=== PATIENT | male | born 1945 | race Caucasian/White ===

== ENCOUNTER 2021-08-15 17:13 | Inpatient (IN) | payer MEDICARE ==
[~2021-08-15] VITALS: Ht 177.8 cm; Wt 164.8 kg
[2021-08-15] MEDS ORDERED: SODIUM CHLORIDE 0.9% 1,000 ML IV ONE ×3 (17:45→20:00)
[2021-08-15] MEDS ORDERED: ACETAMINOPHEN 1000 MG/ISO-OSM 100 ML IV ONE (17:45)
[2021-08-15 17:53] LABS: BASOPHILS % (AUTO) 0.7 % (0.0-2.0); EOSINOPHILS % (AUTO) 0.2 % (1.0-6.0); HEMATOCRIT 39.3 % (41-53); HEMOGLOBIN 11.9 g/dL (13.5-17.5); LYMPHOCYTES # (AUTO) 0.4 K/uL (1.0-4.8); LYMPHOCYTES % (AUTO) 5.8 % (22.0-44.0); MEAN CORPUSCULAR HEMOGLOBIN 23.6 pg (26.0-34.0); MEAN CORPUSCULAR HGB CONC 30.4 G/dL (31.0-37.0); MEAN CORPUSCULAR VOLUME 78 fL (80-100); MONOCYTES # (AUTO) 0.8 K/uL (0.1-1.0); MONOCYTES % (AUTO) 12.5 % (2.0-9.0); NEUTROPHILS # (AUTO) 5.3 K/uL (1.8-7.7); NEUTROPHILS % (AUTO) 80.8 % (40.0-70.0); PLATELET COUNT (AUTO) 235 K/uL (150-450); RED BLOOD CELL COUNT(AUTO) 5.06 MIL/uL (4.50-5.90); RED CELL DISTRIBUTION WIDTH 20.6 % (11.5-14.5)
[2021-08-15 18:11] LABS: CALCIUM, TOTAL 9.2 mg/dL (8.8-10.5); CREATININE 2.08 mg/dL (0.60-1.30); POTASSIUM 5.6 mmol/L (3.5-5.1)
[2021-08-15 18:14] LABS: INR 1.3 (0.9-1.1); PROTHROMBIN TIME 13.5 SEC (9.4-11.6)
[2021-08-15 18:27] LABS: COVID AG,FIA SOURCE NASOPHARYNGEAL
[2021-08-15] MEDS: DILTIAZEM HCL 5 MG/ML 5 ML VIAL IVP ONE ×2 (18:27→19:09)
[2021-08-15 18:36] LABS: ALBUMIN 2.4 g/dL (3.4-5.0); BILIRUBIN,TOTAL 0.5 mg/dL (0.1-1.0); TOTAL PROTEIN, SERUM 7.1 g/dL (6.4-8.2)
[2021-08-15] MEDS ORDERED: CefTRIAXone 1 GM/DEXTROSE 50 ML IV ONE (18:45)
[2021-08-15] MEDS ORDERED: LEVOFLOXACIN 500 MG/D5% WATER 100 ML IV ONE (18:45)
[2021-08-15 18:54] LABS: APPEARANCE,URINE SL CLOUDY (CLEAR); BILIRUBIN,URINE NEGATIVE (NEGATIVE); GLUCOSE, URINE (UA) NEGATIVE (NEGATIVE); KETONES,URINE NEGATIVE (NEGATIVE); LEUKOCYTE ESTERASE ,URINE SMALL (NEGATIVE); NITRATE,URINE NEGATIVE (NEGATIVE); OCCULT BLOOD,URINE NEGATIVE (NEGATIVE); PROTEIN,URINE POS 1+ (NEGATIVE)
[2021-08-15 19:02] LABS: RBC,URINE None Seen /HPF (0-2); WBC,URINE None Seen /HPF (0-5)
[2021-08-15 19:03] LABS: BACTERIA,URINE Few /HPF (None Seen); SQUAMOUS EPITHELIAL CELL,UR Few /LPF (None Seen); TRIPLE PHOSPHATE CRYSTAL,UR Many /LPF (None Seen)
[2021-08-15 19:03] LABS: LACTIC ACID 1.5 mmol/L (0.4-2.0)
[2021-08-15] MEDS ORDERED: DILTIAZEM HCL 5 MG/ML 5 ML VIAL IVP ONE (19:15)
[2021-08-15] MEDS ORDERED: *CLINICAL-LEVOFLOXACIN IVPB DOSING CLINICAL ONE (20:00)
[2021-08-15] MEDS ORDERED: BISACODYL 10 MG RECTAL RECTAL SUPPOSITORY PR PRN (20:00)
[2021-08-15] MEDS ORDERED: ACETAMINOPHEN 325 MG TABLET PO PRN (20:00)
[2021-08-15] MEDS ORDERED: DIGOXIN 250 MCG/ML 2 ML AMP IVP ONE (20:00)
[2021-08-15 20:50] VITALS: BP 100/58
[2021-08-15] MEDS ORDERED: ACETAMINOPHEN 650 MG RECTAL SUPPOSITORY PR PRN (22:45)
[2021-08-16] VITALS (9 sets, daily range): BP systolic 87–156; BP diastolic 47–109
[2021-08-16] MEDS ORDERED: DIGOXIN 250 MCG/ML 2 ML AMP IVP ONE (00:15)
[2021-08-16] MEDS: HEPARIN SODIUM,PORCINE 5,000 UNITS/ML VIAL SQ SCH ×2 (00:58→08:07)
[2021-08-16 07:20] LABS: CALCIUM, TOTAL 8.9 mg/dL (8.8-10.5); CREATININE 1.94 mg/dL (0.60-1.30); POTASSIUM 5.3 mmol/L (3.5-5.1)
[2021-08-16] MEDS: PANTOPRAZOLE SODIUM 40 MG/VIAL IVP SCH (08:07)
[2021-08-16] MEDS: LEVOFLOXACIN 750 MG/D5% WATER 150 ML IV SCH (12:13)
[2021-08-16] MEDS ORDERED: SODIUM CHLORIDE 0.9% 250 ML IV ONE (13:17)
[2021-08-16] MEDS ORDERED: SODIUM CHLORIDE 0.9% 1,000 ML IV ONE (15:15)
[2021-08-16] MEDS: LORazepam 2 MG/ML VIAL IVP PRN (15:27)
[2021-08-16] MEDS: DIGOXIN 250 MCG/ML 2 ML AMP IVP SCH (15:44)
[2021-08-16] MEDS: AMIODARONE HCL 200 MG TABLET PO SCH (21:53)
[2021-08-16] MEDS: APIXABAN 2.5 MG TABLET PO SCH (21:53)
[2021-08-17] MEDS: LORazepam 2 MG/ML VIAL IVP PRN ×3 (00:53→23:42)
[2021-08-17 05:30] VITALS: BP 143/71
[2021-08-17] MEDS: APIXABAN 2.5 MG TABLET PO SCH ×2 (08:21→20:03)
[2021-08-17] MEDS: DIGOXIN 250 MCG/ML 2 ML AMP IVP SCH (08:21)
[2021-08-17] MEDS: PANTOPRAZOLE SODIUM 40 MG/VIAL IVP SCH (08:21)
[2021-08-17] MEDS: AMIODARONE HCL 200 MG TABLET PO SCH ×2 (08:21→20:03)
[2021-08-17 08:53] LABS: BASOPHILS % (AUTO) 0.3 % (0.0-2.0); EOSINOPHILS % (AUTO) 1.3 % (1.0-6.0); HEMATOCRIT 37.4 % (41-53); HEMOGLOBIN 11.2 g/dL (13.5-17.5); LYMPHOCYTES # (AUTO) 0.5 K/uL (1.0-4.8); LYMPHOCYTES % (AUTO) 7.3 % (22.0-44.0); MEAN CORPUSCULAR HEMOGLOBIN 23.4 pg (26.0-34.0); MEAN CORPUSCULAR VOLUME 78 fL (80-100); MONOCYTES # (AUTO) 0.8 K/uL (0.1-1.0); MONOCYTES % (AUTO) 10.4 % (2.0-9.0); NEUTROPHILS % (AUTO) 80.7 % (40.0-70.0); PLATELET COUNT (AUTO) 203 K/uL (150-450)
[2021-08-17 08:56] VITALS: BP 149/88
[2021-08-17 09:00] LABS: CALCIUM, TOTAL 9.7 mg/dL (8.8-10.5); CREATININE 1.45 mg/dL (0.60-1.30); POTASSIUM 5.1 mmol/L (3.5-5.1)
[2021-08-17 11:58] VITALS: BP 151/106
[2021-08-17] MEDS: LEVOFLOXACIN 750 MG/D5% WATER 150 ML IV SCH (12:21)
[2021-08-17 15:31] VITALS: BP 148/95
[2021-08-17] MEDS: METOPROLOL SUCCINATE 50 MG ER TABLET PO SCH (15:35)
[2021-08-17] MEDS: DOCUSATE SODIUM 100 MG CAPSULE PO SCH (20:03)
[2021-08-17 20:18] VITALS: BP 126/81
[2021-08-18] VITALS (7 sets, daily range): BP systolic 146–162; BP diastolic 77–91
[2021-08-18] MEDS: DIGOXIN 250 MCG/ML 2 ML AMP IVP SCH (08:17)
[2021-08-18] MEDS: METOPROLOL SUCCINATE 50 MG ER TABLET PO SCH (08:17)
[2021-08-18] MEDS: PANTOPRAZOLE SODIUM 40 MG/VIAL IVP SCH (08:17)
[2021-08-18] MEDS: DOCUSATE SODIUM 100 MG CAPSULE PO SCH ×2 (08:17→20:59)
[2021-08-18] MEDS: APIXABAN 2.5 MG TABLET PO SCH ×2 (08:17→20:59)
[2021-08-18] MEDS: AMIODARONE HCL 200 MG TABLET PO SCH ×2 (08:17→20:59)
[2021-08-18] MEDS: LORazepam 2 MG/ML VIAL IVP PRN (08:21)
[2021-08-18] MEDS: FUROSEMIDE 20 MG/2 ML VIAL IVP SCH ×2 (12:30→20:59)
[2021-08-18] MEDS: LEVOFLOXACIN 750 MG/D5% WATER 150 ML IV SCH (12:32)
[2021-08-19 04:51] VITALS: BP 157/86
[2021-08-19 07:21] VITALS: BP 155/95
[2021-08-19] MEDS: DIGOXIN 250 MCG/ML 2 ML AMP IVP SCH (08:43)
[2021-08-19] MEDS: PANTOPRAZOLE SODIUM 40 MG/VIAL IVP SCH (08:43)
[2021-08-19] MEDS: FUROSEMIDE 20 MG/2 ML VIAL IVP SCH ×2 (08:43→21:20)
[2021-08-19] MEDS: DOCUSATE SODIUM 100 MG CAPSULE PO SCH ×2 (08:43→21:20)
[2021-08-19] MEDS: APIXABAN 2.5 MG TABLET PO SCH ×2 (08:44→21:20)
[2021-08-19] MEDS: AMIODARONE HCL 200 MG TABLET PO SCH ×2 (08:44→21:21)
[2021-08-19] MEDS: METOPROLOL SUCCINATE 50 MG ER TABLET PO SCH (08:44)
[2021-08-19 09:44] LABS: BASOPHILS % (AUTO) 0.6 % (0.0-2.0); EOSINOPHILS % (AUTO) 1.9 % (1.0-6.0); HEMATOCRIT 40.4 % (41-53); HEMOGLOBIN 12.5 g/dL (13.5-17.5); LYMPHOCYTES # (AUTO) 0.6 K/uL (1.0-4.8); LYMPHOCYTES % (AUTO) 6.6 % (22.0-44.0); MEAN CORPUSCULAR HEMOGLOBIN 23.5 pg (26.0-34.0); MEAN CORPUSCULAR HGB CONC 31.1 G/dL (31.0-37.0); MEAN CORPUSCULAR VOLUME 76 fL (80-100); MONOCYTES # (AUTO) 0.9 K/uL (0.1-1.0); MONOCYTES % (AUTO) 9.2 % (2.0-9.0); NEUTROPHILS # (AUTO) 7.8 K/uL (1.8-7.7); NEUTROPHILS % (AUTO) 81.7 % (40.0-70.0); PLATELET COUNT (AUTO) 261 K/uL (150-450); RED BLOOD CELL COUNT(AUTO) 5.33 MIL/uL (4.50-5.90); RED CELL DISTRIBUTION WIDTH 20.8 % (11.5-14.5)
[2021-08-19 10:07] LABS: ALBUMIN 2.1 g/dL (3.4-5.0); BILIRUBIN,TOTAL 0.6 mg/dL (0.1-1.0); CALCIUM, TOTAL 10.1 mg/dL (8.8-10.5); CREATININE 1.31 mg/dL (0.60-1.30); POTASSIUM 4.7 mmol/L (3.5-5.1); TOTAL PROTEIN, SERUM 6.9 g/dL (6.4-8.2)
[2021-08-19 11:46] VITALS: BP 151/110
[2021-08-19] MEDS: LEVOFLOXACIN 750 MG/D5% WATER 150 ML IV SCH (12:00)
[2021-08-19 12:34] LABS: DIGOXIN 6.11 ng/mL (0.90-2.00)
[2021-08-19 14:38] LABS: ABG A-A DIFF O2 141.8 mmHg (10-20.0); ABG BASE EXCESS 7.1 mmol/L (-2.0-3.0); ABG CARBOXYHEMOGLOBIN 1.8 % (0.0-1.5); ABG HCO3 29.9 mmol/L (22.0-26.0); ABG METHEMOGLOBIN 0.3 % (0.0-1.5); ABG OXYGEN CONTENT 16.8 mL/dL (15.0-23.0); ABG OXYGEN SATURATION 92.2 % (95.0-98.0); ABG OXYHEMOGLOBIN 90.3 % (94.0-100.0); ABG PCO2 48 mmHg (35-45); ABG PH 7.437 (7.35-7.450); ABG TOTAL HEMOGLOBIN 13.2 G/dL (12.0-18.0); O2 DEVICE,BLOOD GAS CANNULA (ROOM AIR); PO2, ARTERIAL BG 59.8 mmHg (75.0-83.0); SITE, BLOOD GAS LFT RADIAL; SOURCE, BLOOD GAS ARTERIAL; TEMPERATURE, FAHRENHEIT, BG 98.6 FAHREN (96.0-98.6)
[2021-08-19] MEDS ORDERED: LORazepam 2 MG/ML VIAL IVP PRN (15:00)
[2021-08-19 15:41] LABS: THYROID STIMULATING HORMONE 0.64 uIU/mL (0.36-3.74)
[2021-08-19 15:57] VITALS: BP 179/110
[2021-08-19 19:43] VITALS: BP 140/83
[2021-08-19] MEDS: ATORVASTATIN CALCIUM 40 MG TABLET PO SCH (21:20)
[2021-08-20 00:28] VITALS: BP 149/87
[2021-08-20 06:26] VITALS: BP 150/92
[2021-08-20 08:01] VITALS: BP 133/83
[2021-08-20] MEDS: AMIODARONE HCL 200 MG TABLET PO SCH ×2 (08:25→21:48)
[2021-08-20] MEDS: APIXABAN 2.5 MG TABLET PO SCH ×2 (08:26→21:48)
[2021-08-20] MEDS: PANTOPRAZOLE SODIUM 40 MG/VIAL IVP SCH (08:26)
[2021-08-20] MEDS: METOPROLOL SUCCINATE 50 MG ER TABLET PO SCH (08:27)
[2021-08-20] MEDS: FUROSEMIDE 20 MG/2 ML VIAL IVP SCH ×2 (08:50→21:48)
[2021-08-20] MEDS: DOCUSATE SODIUM 100 MG CAPSULE PO SCH ×2 (08:50→21:00)
[2021-08-20] MEDS ORDERED: ATORVASTATIN CALCIUM 40 MG TABLET PO SCH (09:00)
[2021-08-20 10:46] LABS: BASOPHILS % (AUTO) 0.6 % (0.0-2.0); EOSINOPHILS % (AUTO) 1.2 % (1.0-6.0); HEMATOCRIT 40.4 % (41-53); HEMOGLOBIN 12.4 g/dL (13.5-17.5); LYMPHOCYTES # (AUTO) 0.7 K/uL (1.0-4.8); MEAN CORPUSCULAR HEMOGLOBIN 23.3 pg (26.0-34.0); MEAN CORPUSCULAR HGB CONC 30.6 G/dL (31.0-37.0); MEAN CORPUSCULAR VOLUME 76 fL (80-100); MONOCYTES # (AUTO) 1.1 K/uL (0.1-1.0); MONOCYTES % (AUTO) 12.3 % (2.0-9.0); NEUTROPHILS # (AUTO) 6.8 K/uL (1.8-7.7); NEUTROPHILS % (AUTO) 77.9 % (40.0-70.0); PLATELET COUNT (AUTO) 267 K/uL (150-450); RED BLOOD CELL COUNT(AUTO) 5.31 MIL/uL (4.50-5.90); RED CELL DISTRIBUTION WIDTH 21.1 % (11.5-14.5)
[2021-08-20 11:04] LABS: ALBUMIN 2.1 g/dL (3.4-5.0); BILIRUBIN,TOTAL 0.8 mg/dL (0.1-1.0); CREATININE 1.47 mg/dL (0.60-1.30); DIGOXIN 1.09 ng/mL (0.90-2.00); POTASSIUM 4.1 mmol/L (3.5-5.1); TOTAL PROTEIN, SERUM 6.8 g/dL (6.4-8.2)
[2021-08-20] MEDS ORDERED: CloNIDine HCL 0.1 MG TABLET PO PRN (11:30)
[2021-08-20 11:41] VITALS: BP 146/99
[2021-08-20] MEDS ORDERED: SODIUM CHLORIDE 0.9% 250 ML IV ONE (12:07)
[2021-08-20] MEDS: LEVOFLOXACIN 750 MG/D5% WATER 150 ML IV SCH (12:19)
[2021-08-20 16:09] VITALS: BP 155/93
[2021-08-20 21:29] VITALS: BP 145/90
[2021-08-20] MEDS: ATORVASTATIN CALCIUM 40 MG TABLET PO SCH (21:48)
[2021-08-20] MEDS ORDERED: HALOPERIDOL LACTATE 5 MG/ML VIAL IM ONE (22:30)
[2021-08-21 00:41] VITALS: BP 131/86
[2021-08-21 04:44] VITALS: BP 127/74
[2021-08-21 06:15] LABS: BASOPHILS % (AUTO) 0.5 % (0.0-2.0); HEMATOCRIT 41.1 % (41-53); HEMOGLOBIN 12.5 g/dL (13.5-17.5); LYMPHOCYTES % (AUTO) 9.7 % (22.0-44.0); MEAN CORPUSCULAR HEMOGLOBIN 23.7 pg (26.0-34.0); MEAN CORPUSCULAR HGB CONC 30.5 G/dL (31.0-37.0); MEAN CORPUSCULAR VOLUME 78 fL (80-100); MONOCYTES # (AUTO) 1.1 K/uL (0.1-1.0); MONOCYTES % (AUTO) 10.3 % (2.0-9.0); NEUTROPHILS # (AUTO) 8.1 K/uL (1.8-7.7); NEUTROPHILS % (AUTO) 77.5 % (40.0-70.0); PLATELET COUNT (AUTO) 265 K/uL (150-450); RED BLOOD CELL COUNT(AUTO) 5.29 MIL/uL (4.50-5.90); RED CELL DISTRIBUTION WIDTH 20.9 % (11.5-14.5)
[2021-08-21 06:44] LABS: ALBUMIN 2.1 g/dL (3.4-5.0); BILIRUBIN,TOTAL 0.7 mg/dL (0.1-1.0); CALCIUM, TOTAL 9.9 mg/dL (8.8-10.5); CREATININE 1.71 mg/dL (0.60-1.30); DIGOXIN 1.09 ng/mL (0.90-2.00); MAGNESIUM 2.1 mg/dL (1.80-2.40); POTASSIUM 4.3 mmol/L (3.5-5.1); TOTAL PROTEIN, SERUM 6.8 g/dL (6.4-8.2)
[2021-08-21 09:06] VITALS: BP 105/69
[2021-08-21] MEDS: DOCUSATE SODIUM 100 MG CAPSULE PO SCH ×2 (10:12→20:45)
[2021-08-21] MEDS: METOPROLOL SUCCINATE 50 MG ER TABLET PO SCH (10:12)
[2021-08-21] MEDS: APIXABAN 2.5 MG TABLET PO SCH ×2 (10:12→20:44)
[2021-08-21] MEDS: AMIODARONE HCL 200 MG TABLET PO SCH ×2 (10:12→20:44)
[2021-08-21] MEDS: PANTOPRAZOLE SODIUM 40 MG/VIAL IVP SCH (10:13)
[2021-08-21] MEDS: FUROSEMIDE 20 MG/2 ML VIAL IVP SCH (10:13)
[2021-08-21] MEDS ORDERED: DEXTROSE 5%-WATER 1,000 ML IV ONE (11:15)
[2021-08-21] MEDS: LEVOFLOXACIN 750 MG/D5% WATER 150 ML IV SCH (12:50)
[2021-08-21 13:15] VITALS: BP 110/70
[2021-08-21 20:00] VITALS: BP 91/55
[2021-08-21] MEDS: ATORVASTATIN CALCIUM 40 MG TABLET PO SCH (20:44)
[2021-08-21 21:19] VITALS: BP 101/62
[2021-08-22] MEDS: ACETAMINOPHEN 325 MG TABLET PO PRN ×2 (00:36→20:06)
[2021-08-22 01:06] VITALS: BP 137/98
[2021-08-22 05:30] VITALS: BP 121/73
[2021-08-22 07:26] VITALS: BP 107/58
[2021-08-22 07:27] LABS: BASOPHILS % (AUTO) 0.5 % (0.0-2.0); EOSINOPHILS % (AUTO) 1.7 % (1.0-6.0); HEMATOCRIT 40.9 % (41-53); HEMOGLOBIN 12.1 g/dL (13.5-17.5); LYMPHOCYTES # (AUTO) 0.9 K/uL (1.0-4.8); LYMPHOCYTES % (AUTO) 8.9 % (22.0-44.0); MEAN CORPUSCULAR HEMOGLOBIN 23.3 pg (26.0-34.0); MEAN CORPUSCULAR HGB CONC 29.7 G/dL (31.0-37.0); MEAN CORPUSCULAR VOLUME 79 fL (80-100); MONOCYTES # (AUTO) 1.2 K/uL (0.1-1.0); MONOCYTES % (AUTO) 11.1 % (2.0-9.0); NEUTROPHILS # (AUTO) 8.1 K/uL (1.8-7.7); NEUTROPHILS % (AUTO) 77.8 % (40.0-70.0); PLATELET COUNT (AUTO) 275 K/uL (150-450); RED BLOOD CELL COUNT(AUTO) 5.19 MIL/uL (4.50-5.90); RED CELL DISTRIBUTION WIDTH 21.1 % (11.5-14.5)
[2021-08-22 07:46] LABS: BILIRUBIN,TOTAL 0.8 mg/dL (0.1-1.0); CALCIUM, TOTAL 9.3 mg/dL (8.8-10.5); CREATININE 1.97 mg/dL (0.60-1.30); MAGNESIUM 2.4 mg/dL (1.80-2.40); POTASSIUM 4.6 mmol/L (3.5-5.1); TOTAL PROTEIN, SERUM 6.6 g/dL (6.4-8.2)
[2021-08-22] MEDS: METOPROLOL SUCCINATE 50 MG ER TABLET PO SCH (07:58)
[2021-08-22] MEDS: DOCUSATE SODIUM 100 MG CAPSULE PO SCH ×2 (07:58→20:05)
[2021-08-22] MEDS: AMIODARONE HCL 200 MG TABLET PO SCH ×2 (07:58→20:05)
[2021-08-22] MEDS: APIXABAN 2.5 MG TABLET PO SCH ×2 (07:59→20:05)
[2021-08-22] MEDS: PANTOPRAZOLE SODIUM 40 MG/VIAL IVP SCH (08:07)
[2021-08-22] MEDS ORDERED: DEXTROSE 5%-WATER 1,000 ML IV ONE (09:45)
[2021-08-22 11:53] VITALS: BP 102/67
[2021-08-22] MEDS: LEVOFLOXACIN 750 MG/D5% WATER 150 ML IV SCH (12:29)
[2021-08-22 15:50] VITALS: BP 103/75
[2021-08-22] MEDS ORDERED: LIDOCAINE 1% 20 ML VIAL ID ONE (17:30)
[2021-08-22 19:38] VITALS: BP 93/60
[2021-08-22] MEDS: ATORVASTATIN CALCIUM 40 MG TABLET PO SCH (20:05)
== END 2021-08-23 01:25 | DRG 871 ==
LOC: EMS 17:13 → 5S 19:50
PROVIDERS: ADMIT Internal Medicine; ATTEND Internal Medicine
PROC: 5A0935A Assistance with Respiratory Ventilation, Less than 24 Consecutive Hours, High Flow/Velocity Cannula (ICD-10-PCS; 2021-08-19)
PROC: 5A09357 Assistance with Respiratory Ventilation, Less than 24 Consecutive Hours, Continuous Positive Airway Pressure (ICD-10-PCS; 2021-08-19)
PROC: 5A09357 Assistance with Respiratory Ventilation, Less than 24 Consecutive Hours, Continuous Positive Airway Pressure (ICD-10-PCS; 2021-08-20)
PROC: 00JU3ZZ Inspection of Spinal Canal, Percutaneous Approach (ICD-10-PCS; principal; 2021-08-22)
DX: A41.9 Sepsis, unspecified organism (principal); J96.91 Respiratory failure, unspecified with hypoxia; G92.8 Other toxic encephalopathy; J69.0 Pneumonitis due to inhalation of food and vomit; R65.21 Severe sepsis with septic shock; N17.9 Acute kidney failure, unspecified; I13.0 Hypertensive heart and chronic kidney disease with heart failure and stage 1 through stage 4 chronic kidney disease, or unspecified chronic kidney disease; L03.116 Cellulitis of left lower limb; L03.115 Cellulitis of right lower limb; E87.0 Hyperosmolality and hypernatremia; Z68.43 Body mass index [BMI] 50.0-59.9, adult; I50.32 Chronic diastolic (congestive) heart failure; E66.2 Morbid (severe) obesity with alveolar hypoventilation; Z20.822 Contact with and (suspected) exposure to COVID-19; I46.9 Cardiac arrest, cause unspecified; Z66 Do not resuscitate; R31.9 Hematuria, unspecified; G89.29 Other chronic pain; F32.A Depression, unspecified; R00.1 Bradycardia, unspecified; F41.9 Anxiety disorder, unspecified; F01.50 Vascular dementia, unspecified severity, without behavioral disturbance, psychotic disturbance, mood disturbance, and anxiety; I48.91 Unspecified atrial fibrillation; T46.0X5A Adverse effect of cardiac-stimulant glycosides and drugs of similar action, initial encounter; N18.30 Chronic kidney disease, stage 3 unspecified; Z86.73 Personal history of transient ischemic attack (TIA), and cerebral infarction without residual deficits; Z79.01 Long term (current) use of anticoagulants; Z79.899 Other long term (current) drug therapy; Z88.0 Allergy status to penicillin; Y92.230 Patient room in hospital as the place of occurrence of the external cause
CPT/HCPCS: 36600; 51702; 70450; 71045; 80048; 80053; 80162; 81001; 82140; 82550; 82805; 83605; 83735; 84443; 84484; 85025; 85610; 85730; 87040; 87081; 92522; 92610; 93005; 93306; 94660; 99291; C9113; J0131; J0696; J1160; J1630; J1644; J1940; J1956; J2060; J3490; J7030; J7050; J7060; 36415-L1; 36415-TC